=== PATIENT | female | born 1975 | race Caucasian/White ===

== ENCOUNTER → 2025-07-30 | Outpatient (CLI) | payer OTHER ==
[~2025-07-30] MED LIST: ALBIPROI INH; ALBU90OI; ALBU90OI INH; ALBU90OI61 INH; AZIT250 PO; Bactroban22 GM TOP; Crutch1 EACH MISC; FLUSAL2505 INH; HYDGUAL120 PO; IBUP600 PO; IBUP800 PO; Macrobid 100 M100 MG PO; Naprosyn500 MG PO; Norco 5-325 Ta1 EACH PO; PRED20 PO; Phenergan25 M1 PO; Prednisone20 MG PO; Pyridium200 MG PO; Roxicodone5 MG PO; TIOT18 INH; Veetids 500500 MG PO; Zithromax250 MG PO; [UNRECOGNIZED DRUG - OTHER] PO
[2025-07-31 13:54] LABS: Bacterial Vaginosis PCR Negative (NEGATIVE); Candida Group, PCR NOT DETECTED (NOT DETECT); Candida glabrata-krusei, PCR NOT DETECTED (NOT DETECT)
[2025-07-31 14:27] LABS: Chlamydia Trachomatis Cervix NOT DETECTED (NOT DETECT); Neisseria Gonorrhoea Cervix NOT DETECTED (NOT DETECT)
== END ==
LOC: LAB SHORT 19:26 → LAB 19:26
PROVIDERS: Physician Assistant
DX: R10.2 Pelvic and perineal pain (principal)
CPT/HCPCS: 81515; 87491; 87591

== ENCOUNTER 2025-10-07 00:30 | Emergency (ER) | payer OTHER ==
[~2025-10-07] VITALS: Ht 167.6 cm; Wt 93.0 kg
[2025-10-07 00:32] VITALS: BP 106/65
== END 2025-10-07 03:37 | disposition home or self-care (01) ==
LOC: ER 00:30
DX: S96.912A Strain of unspecified muscle and tendon at ankle and foot level, left foot, initial encounter (principal); S93.402A Sprain of unspecified ligament of left ankle, initial encounter; J45.909 Unspecified asthma, uncomplicated; F17.210 Nicotine dependence, cigarettes, uncomplicated; Z91.038 Other insect allergy status; Z88.8 Allergy status to other drugs, medicaments and biological substances; Z88.3 Allergy status to other anti-infective agents; Z79.51 Long term (current) use of inhaled steroids; Z79.899 Other long term (current) drug therapy; W19.XXXA Unspecified fall, initial encounter
CPT/HCPCS: 73610; 99283-25; A9270

== ENCOUNTER → 2025-10-18 | Outpatient (CLI) | payer OTHER ==
[2025-10-18 14:51] LABS: Creatinine, Urine Random 37.6 mg/dL (27.00-270.00); Microalbumin, Random Urine 12.2 mg/L (0.000-20.000)
[2025-10-20 19:17] LABS: ETHYL GLUCURONIDE SCRN RFX,URN PresumptivePOS ng/mL
[2025-10-27 11:30] LABS: ETHYL GLUCURONIDE, URN, QUANT >10000 ng/mL; ETHYL SULFATE, URN, QUANT >10000 ng/mL
== END ==
LOC: LAB 13:10 → LAB SHORT 13:10
PROVIDERS: Family Medicine
DX: E11.69 Type 2 diabetes mellitus with other specified complication (principal); F10.10 Alcohol abuse, uncomplicated
CPT/HCPCS: 82043; 82570; G0480